=== PATIENT | male | born 1935 | race Caucasian/White ===

== ENCOUNTER 2024-10-12 02:14 | Inpatient (IN) | payer OTHER, MEDICARE ==
[~2024-10-12] VITALS: Ht 182.9 cm; Wt 110.4 kg
[2024-10-12] VITALS (44 sets, daily range): BP systolic 94–134; BP diastolic 42–70
[2024-10-12] MEDS ORDERED: NITROGLYCERIN 2% OINT UD 1 GM/PAK TD ONE (02:25)
[2024-10-12] MEDS ORDERED: MORPHINE SULFATE 4 MG/ML VIAL IV ONE ×3 (02:25→19:45)
[2024-10-12] MEDS ORDERED: PROMETHAZINE HCL 25 MG/ML AMP IV ONE (02:30)
[2024-10-12] MEDS ORDERED: NITROGLYCERIN IN D5W 250 ML IV ONE (02:35)
[2024-10-12 02:44] LABS: EOS% 4.1 % (0-8); HEMATOCRIT 44.1 % (39.0-50.0); HEMOGLOBIN 14.8 g/dl (14.0-18.0); IMMATURE GRANULOCYTES 0.3 % (0.0-5.0); LYMPH% 49.9 % (15-41); MEAN CELL VOLUME 98.9 fL CALC (80.0-100.0); MEAN CORPUSCULAR HGB 33.2 pG CALC (26.0-32.0); MEAN CORPUSCULAR HGB CONC 33.6 g/dL CAL (32.0-36.0); MONO% 10.5 % (2-13); NEUT# 2.45 thou/uL (1.82-7.42); NEUT% 34.2 % (42-76); RED BLOOD COUNT 4.46 mill/uL (4.70-6.10); RED CELL DISTRI WIDTH 12.9 % (11.5-15.5)
[2024-10-12 02:55] LABS: ALBUMIN 3.7 g/dL (3.2-5.0); ALKALINE PHOSPHATASE 69 u/l (38-126); ANION GAP 12 (6-22 (CALC)); BILIRUBIN, TOTAL 0.6 mg/dL (0.2-1.3); BUN 25 mg/dL (8-23); BUN/CREATININE RATIO 17 (12-20 (CALC)); CARBON DIOXIDE 23 mmol/l (22-30); CHLORIDE 106 mmol/l (95-108); CREATININE 1.5 mg/dL (0.7-1.3); ESTIMATED GFR 45 ML/MIN (>=90 (CALC)); LIPASE 185 u/l (23-300); POTASSIUM 3.5 mmol/l (3.5-5.1); SGOT/AST 25 u/l (19-48); SODIUM 137 mmol/l (137-146); TOTAL PROTEIN 6.3 g/dL (6.3-8.2)
[2024-10-12] MEDS ORDERED: LISINOPRIL20 M1 PO (02:55)
[2024-10-12] MEDS ORDERED: HYDROCHLOROT25 MG PO (02:56)
[2024-10-12] MEDS ORDERED: TOPROL XL50 MG PO (02:57)
[2024-10-12 03:05] LABS: D-DIMER 0.7 mg/L (0.19-0.60); INTERNATIONAL NORMALIZED RATIO 0.9 RATIO (0.7-1.3)
[2024-10-12] MEDS ORDERED: Polyethylene Glycol 3350 17 GM/PKT PO PRN (05:00)
[2024-10-12] MEDS ORDERED: IBUPROFEN 800 MG/TAB PO PRN (05:00)
[2024-10-12] MEDS ORDERED: FAMOTIDINE 10MG/ML 2ML SDV IV PRN (05:00)
[2024-10-12] MEDS ORDERED: ALUM & MAG HYDROX-SIMETHICONE 30 ML PO PRN (05:00)
[2024-10-12] MEDS ORDERED: ENOXAPARIN SODIUM 40 MG/0.4 ML SYR SC SCH (05:00)
[2024-10-12] MEDS ORDERED: ONDANSETRON 4 MG/TAB ODT PO PRN (05:00)
[2024-10-12] MEDS ORDERED: ONDANSETRON HCl 4 MG/2 ML SDV IV PRN (05:00)
[2024-10-12] MEDS ORDERED: NITROGLYCERIN 2% OINT UD 1 GM/PAK TD SCH (06:00)
[2024-10-12] MEDS ORDERED: LOPRESSOR 550 MG/TAB PO (07:55)
[2024-10-12] MEDS ORDERED: SODIUM CHLORIDE 0.9% 250 ML IV PRN (08:55)
[2024-10-12] MEDS ORDERED: NITROGLYCERIN IN D5W 250 ML IV PRN (08:55)
[2024-10-12] MEDS ORDERED: METOPROLOL TARTRATE 50 MG/TAB PO SCH (09:00)
[2024-10-12] MEDS ORDERED: ASPIRIN EC 81 MG/TAB PO SCH (09:00)
[2024-10-12] MEDS ORDERED: ASPIRIN 81 MG/TAB PO SCH (09:00)
[2024-10-12] MEDS ORDERED: ASPIRIN 325 MG/TAB PO SCH (09:30)
[2024-10-12] MEDS ORDERED: LISINOPRIL 20 MG/TAB PO SCH (11:00)
[2024-10-12] MEDS ORDERED: Heparin SODIUM (Porcine) 500 ML IV PRN (15:10)
[2024-10-12] MEDS ORDERED: Heparin SODIUM (Porcine) 5,000 UNITS/ML SDV IV ONE (15:15)
[2024-10-12 15:55] LABS: BASO% 0.6 % (0-3); EOS% 0.1 % (0-8); HEMATOCRIT 45.8 % (39.0-50.0); HEMOGLOBIN 15.3 g/dl (14.0-18.0); LYMPH% 13.4 % (15-41); MEAN CELL VOLUME 102.2 fL CALC (80.0-100.0); MEAN CORPUSCULAR HGB 34.2 pG CALC (26.0-32.0); MEAN CORPUSCULAR HGB CONC 33.4 g/dL CAL (32.0-36.0); MONO% 8.4 % (2-13); NEUT# 6.44 thou/uL (1.82-7.42); NEUT% 77.5 % (42-76); RED BLOOD COUNT 4.48 mill/uL (4.70-6.10); RED CELL DISTRI WIDTH 13.1 % (11.5-15.5)
[2024-10-12 16:11] LABS: ACT PARTIAL THROMBO TIME 27.9 SECONDS (20.0-32.5)
[2024-10-12 16:17] LABS: PROTHROMBIN TIME 10.7 SECONDS (9.0-12.5)
== END 2024-10-12 22:30 | DRG 282 ==
LOC: ED 02:14 → ED-I 03:37 → ED 04:58 → MS2 04:59 → ICU 09:42 → MS2 09:42 → ICU 09:45
PROVIDERS: Family Medicine; ADMIT Internal Medicine; ATTEND Internal Medicine
DX: I21.4 Non-ST elevation (NSTEMI) myocardial infarction (principal); I10 Essential (primary) hypertension; I25.10 Atherosclerotic heart disease of native coronary artery without angina pectoris; E78.5 Hyperlipidemia, unspecified; I25.2 Old myocardial infarction; T46.6X6A Underdosing of antihyperlipidemic and antiarteriosclerotic drugs, initial encounter; T39.016A Underdosing of aspirin, initial encounter; Z91.128 Patient's intentional underdosing of medication regimen for other reason; Z87.442 Personal history of urinary calculi; Z95.5 Presence of coronary angioplasty implant and graft
CPT/HCPCS: J1644; J1650; J2305; J2550; Q9967